=== PATIENT | female | born 1955 | race Caucasian/White ===

== ENCOUNTER 2019-03-29 18:50 | Emergency (ER) | payer SELFPAY ==
[2019-03-29] MEDS ORDERED: Midazolam 1 MG/ML 2 ML SDV ONE (19:18)
[2019-03-29] MEDS ORDERED: Propofol 200 MG/20 ML SDV ONE (19:20)
--- NOTE | 2019-03-29 19:30 | PCM.PREANE ---
Preanesthetic Assessment - Procedure Proposed Procedure: closed reduction - Anesthesia/Transfusion/Family Hx Anesthesia History: Prior Anesthesia Without Reaction Family History of Anesthesia Reaction: No Transfusion History: No Prior Transfusion(s) - Review of Systems General: Fever (at clinic) Pulmonary: No Symptoms Cardiovascular: No Symptoms Gastrointestinal: No Symptoms Neurological: No Symptoms Other: Reports: None - Physical Assessment NPO Status Date: 03/29/19 NPO Status Time: 13:30 Vital Signs: Last Vital Signs Temp 99.9 F 03/29/19 19:12 Pulse 82 03/29/19 19:12 Resp 17 03/29/19 19:12 BP 169/86 H 03/29/19 19:12 Pulse Ox 100 03/29/19 19:12 Height: 5 ft 6 in Weight: 55.747 kg ASA Class: 1E Mental Status: Alert & Oriented x3 Airway Class: Mallampati = 1 Dentition: Reports: Normal Dentition Thyro-Mental Finger Breadths: 3 Mouth Opening Finger Breadths: 3 ROM/Head Extension: Full Lungs: Clear to Auscultation, Normal Respiratory Effort Cardiovascular: Regular Rate, Regular Rhythm - Allergies Allergies/Adverse Reactions: Allergies Allergy/AdvReac Type Severity Reaction Status Date / Time Penicillins Allergy Swollen Verified 03/29/19 19:16 Tongue - Blood Blood Available: No - Acknowledgements Anesthesia Type Planned: MAC Pt an Appropriate Candidate for the Planned Anesthesia: Yes Alternatives and Risks of Anesthesia Discussed w Pt/Guardian: Yes Pt/Guardian Understands and Agrees with Anesthesia Plan: Yes PreAnesthesia Questionnaire - Past Health History Medical/Surgical History: Denies Medical/Surgical History Cardiovascular History: Reports: None Respiratory History: Reports: None Gastrointestinal History: Reports: None [employer] History: Reports: - Past Surgical History Female Surgical History: Reports: D&C - SUBSTANCE USE Smoking Status *Q: Former Smoker (quit 30 years ago) Tobacco Use Within Last Twelve Months: No Second Hand Smoke Exposure: No Days Per Week of Alcohol Use: 0 Recreational Drug Use History: No - HOME MEDS Home Medications: Home Meds Multivitamin [Multi-Vitamin Daily] 1 tab PO DAILY 03/29/19 [History] - CURRENT (IN HOUSE) MEDS Current Meds: Current Medications Discontinued Medications Midazolam HCl (Versed 1 Mg/Ml) Confirm Administered Dose 2 mg .ROUTE .[facility] ONE Stop: 03/29/19 19:19 Propofol (Diprivan 20 Ml) Confirm Administered Dose 200 mg .ROUTE .[facility] ONE Stop: 03/29/19 19:21
--- NOTE | 2019-03-29 20:11 | PCM48HPAN ---
Post Anesthesia Note - EVALUATION WITHIN 48HRS OF ANESTHETIC Vital Signs in Normal Range: Yes Patient Participated in Evaluation: Yes Respiratory Function Stable: Yes Airway Patent: Yes Cardiovascular Function Stable: Yes Hydration Status Stable: Yes Pain Control Satisfactory: Yes Nausea and Vomiting Control Satisfactory: Yes Mental Status Recovered: Yes Vital Signs: Last Vital Signs Temp 99.9 F 03/29/19 19:12 Pulse 82 03/29/19 19:12 Resp 17 03/29/19 19:12 BP 169/86 H 03/29/19 19:12 Pulse Ox 100 03/29/19 19:12
--- NOTE | 2019-03-30 08:11 | CR ---
Left wrist: Two views of the left wrist were obtained. Comparison: Previous wrist study performed earlier on the same day (5:43 PM). Previous fracture shows evidence of reduction. Alignment appears fairly close to anatomic. Plaster splint or cast is in place obscuring some bony details. No additional abnormality is appreciated. Impression: 1. Reduced distal radial fracture with alignment appearing near anatomic. 2. Plaster cast or splint is in place. Diagnostic code #2
--- NOTE | 2019-04-03 07:55 | OR ---
DATE OF OPERATION: 03/29/2019 SURGEON: Vini Rowell MD OPERATION PERFORMED: Closed reduction and splinting of left distal radius fracture. PREOPERATIVE DIAGNOSIS: Displaced left distal radius fracture. POSTOPERATIVE DIAGNOSIS: Displaced left distal radius fracture. ANESTHESIA: MAC sedation. PUBLIC RELATIONS SALES MARKETING: None. ANESTHESIOLOGIST: Galina Markham CRNA. ESTIMATED BLOOD LOSS: Not applicable. COMPLICATIONS: None. CONDITION: Stable. DESCRIPTION OF PROCEDURE: The patient was identified in the Emergency Department. Consent was obtained. After adequate anesthesia, a closed reduction maneuver with somebody holding the patient's arm was then done. Sugar-tong splint with plaster was then applied and three-point molding was applied at this time to correct the apex volar angulation. Radiographs were then taken showing anatomic reduction on both AP and lateral views of the left distal radius fracture. The patient was placed in a sling and will follow up in 1 week's time for short arm casting. LORI /[id number]
--- NOTE | 2019-04-03 08:04 | CONS ---
CONSULTING PHYSICIAN: Vini Rowell MD DATE OF CONSULTATION: 03/29/2019 HISTORY OF PRESENT ILLNESS: This is a 63-year-old right-hand dominant female who was on a slip and slide with her grand kids and fell sustaining a left distal radius fracture. The patient subsequently went to the emergency room where she was found to have a significantly displaced left distal radius fracture. She denies any previous pain or injury before this happened. She otherwise denies any other injury at this time. OBJECTIVE: VITAL SIGNS: Afebrile. Vital signs are stable. GENERAL: The patient is alert. She is in no acute distress. SKIN: On examination, skin is intact. No erythema or warmth. EXTREMITIES: She does have a significant gross deformity noted to the left distal radius. She is able to flex and extend the IP joint of thumb, abduct and adduct the fingers. She is neurovascularly intact to radial, ulnar, median nerve distribution. 2+ distal radial pulse. RADIOGRAPHS: Radiographs reviewed showing a significantly 30-degree apex volar angulated distal radius fracture. ASSESSMENT: Left distal radius fracture with displacement. PLAN: At this time, I did discuss with the patient that secondary to the radiographs, it is extra-articular, I do believe just a closed reduction is all that is needed with splinting and then casting in roughly 1 week's time. The risks, benefits, complications, and alternatives were discussed with the patient at this time, and please see the operative report for the reduction. The patient was placed in a sugar-tong splint and will follow up in 1 week's time for short arm casting. [facility] /[id number]
== END 2019-03-29 20:40 ==
LOC: JD.ED 18:50
DX: S52.502A Unspecified fracture of the lower end of left radius, initial encounter for closed fracture (principal); W01.0XXA Fall on same level from slipping, tripping and stumbling without subsequent striking against object, initial encounter
CPT/HCPCS: 25605; 73100; 99152; 99153; 99284; J2250; J2704; 01820; 29105